=== PATIENT | female | born 1955 ===

== ENCOUNTER 2018-12-01 12:33 | Day surgery (SDC) | payer OTHER ==
[2018-12-01] MEDS ORDERED: CIPROFLOXACIN 400 MG/200 ML 200 ML IV ONE (12:40)
[2018-12-01] MEDS ORDERED: LACTATED RINGERS 1,000 ML IV ONE (13:20)
--- NOTE | 2018-12-01 13:36 | ANESTHESIA ---
Pre-Anesthesia VS, & Labs - Diagnosis anal lesion, screening for colon cancer - Procedure colonoscopy and exam under anesthesia with excision of anal lesion Vital Signs: Temp Pulse Resp BP Pulse Ox 36.8 C 79 14 139/94 H 98 12/01/18 12:47 12/01/18 12:47 12/01/18 12:47 12/01/18 12:47 12/01/18 12:47 Height 5 ft 9.5 in Weight (kg) 91.9 kg - NPO >8 hours - Is Patient ?: Not Applicable Home Medications and Allergies Home Medications: Ambulatory Orders Naltrexone HCl 3 mg PO QPM 11/25/18 Thyroid,Pork [Nature-Throid] 230 mg PO DAILY 11/25/18 Naltrexone HCl 3 mg PO QPM 11/25/18 Thyroid,Pork [Nature-Throid] 230 mg PO DAILY 11/25/18 Allergies/Adverse Reactions: Allergies Allergy/AdvReac Type Severity Reaction Status Date / Time aspirin AdvReac ringing in Verified 12/01/18 13:07 ears bupropion AdvReac Migraine Verified 12/01/18 13:07 Headache erythromycin base AdvReac severe Verified 12/01/18 13:07 stomach upset Anes History & Medical History - Anesthetic History Anesthesia Complications: reports: No previous complications - Medical History Cardiovascular: reports: None Pulmonary: reports: None Gastrointestinal: reports: None Urinary: reports: None Neuro: reports: None Musculoskeletal: reports: Osteoarthritis, Other (takes naltrexone for chronic hip pain) Endocrine/Autoimmune: reports: HyPOthyroidism Blood Disorders: reports: None Skin: reports: None Smoking Status: Former smoker (Quit 1980) Psychosocial: reports: Depression, Alcohol (2 glasses of wine 3-4 times per week) - Surgical History Eyes Ears Nose Throat (EENT): Tonsil/Adenoidectomy Gynecologic: section, Breast implants, Other Exam General: Alert, Oriented x3, Cooperative, No acute distress Dental: WNL Mouth Openin Fingerbreadth Neck Mobility: Normal Mallampati classification: III Thyromental Distance: 4-6 cm (2 FB) Respiratory: Lungs clear, Normal breath sounds, No respiratory distress, No accessory muscle use Cardiovascular: Regular rate, Normal S1, Normal S2, No murmurs Mental/Cognitive Status: Alert/Oriented X3, Normal for patient Plan Anesthesia Type: MAC (Patient jehoviah's witness, requests no blood products under any circumstances.) Consent for Procedure(s) Verified and Reviewed: Yes Code Status: Attempt Resuscitation ASA classification: 2-Mild systemic disease Is this case an emergency?: No
[2018-12-01] MEDS ORDERED: LIDOCAINE-MPF 1% 30 ML VIAL ONE (15:18)
[2018-12-01] MEDS ORDERED: BUPIVACAINE 0.5%-EPI 1:200000 PF 10 ML VIAL ONE (15:18)
[2018-12-01] MEDS ORDERED: MIDAZOLAM 2 MG/2 ML VIAL IVP ONE (15:30)
[2018-12-01] MEDS ORDERED: PROPOFOL 200 MG/20 ML VIAL IVP ONE ×2 (15:30)
[2018-12-01] MEDS ORDERED: LIDOCAINE-MPF 2% 5 ML VIAL IM ONE (15:30)
[2018-12-01] MEDS ORDERED: KETAMINE 500 MG/10 ML VIAL IVP ONE (15:30)
--- NOTE | 2018-12-01 16:23 | OPERATIVE REPORT ---
Operative Report - General Procedure Date: 12/01/18
[2018-12-01 16:33] VITALS: BP 102/91
== END 2018-12-01 12:34 | disposition home or self-care (01) ==
LOC: SDS 12:33
PROVIDERS: ATTEND Surgery
PROC: 0DBN8ZZ Excision of Sigmoid Colon, Via Natural or Artificial Opening Endoscopic (ICD-10-PCS; principal; 2018-12-01 14:00)
PROC: 0DBQ3ZZ Excision of Anus, Percutaneous Approach (ICD-10-PCS; 2018-12-01 14:00)
DX: Z12.11 Encounter for screening for malignant neoplasm of colon (principal); D12.5 Benign neoplasm of sigmoid colon; K62.0 Anal polyp; K57.30 Diverticulosis of large intestine without perforation or abscess without bleeding; K64.8 Other hemorrhoids; E03.9 Hypothyroidism, unspecified; F32.9 Major depressive disorder, single episode, unspecified; F41.9 Anxiety disorder, unspecified; M19.90 Unspecified osteoarthritis, unspecified site; Z87.891 Personal history of nicotine dependence
CPT/HCPCS: 45380; 46922; 88305; J7120